=== PATIENT | male | born 1995 | race African-American/Black ===

== ENCOUNTER 2017-07-13 19:01 | Emergency (ER) | payer SELFPAY ==
[~2017-07-13] VITALS: Ht 182.9 cm; Wt 149.2 kg
[2017-07-13 20:03] VITALS: BP 168/97; PULSE 73; RESP 16; TEMP 98.8; O2SAT 100
--- NOTE | 2017-07-13 20:23 | PD ---
HPI Chief Complaint: ENT Complaint Time Seen by Provider: 20:08 Travel History International Travel<30 days: No Contact w/Intl Traveler<30days: No Traveled to known affect area: No History of Present Illness HPI 21-year-old -[place] male comes in with 2 issues. First of all patient states, he had some sun chips approximately 1 hour ago and felt like his throat was swelling. He came immediately here thinking he was having allergic reaction , which he has never had before. Patient states the sensation of swelling in his throat has improved since he has been here at the hospital. Patient denies any facial swelling, wheezing, cough, nausea, vomiting, or other constitutional symptoms. Second concern for the patient is possible kidney issue, as he states he had some flank pain starting approximately 2 weeks ago, for which he took [id number] cranberry pills and cranberry juice. He noted over the past couple of days that his back had more discomfort, and he discontinued the cranberry pills and juice with improvement in his symptoms. Lately however he is noticed foaming urine. He denies fever, chills, or dysuria or penile discharge. He has no testicular pain. He would like his urine checked to make sure everything is "okay". He has no known drug allergies. PFSH Past Medical History Medical History: Denies Significant Hx Diminished Hearing: No Tetanus Vaccination: < 5 Years Influenza Vaccination: No Social History Alcohol Use: No Tobacco Use: No Substance Use: No Allergies-Medications (Allergen,Severity, Reaction): Coded Allergies: No Known Allergies (Verified Adverse Reaction, Unknown, 07/13/17) Reported Meds & Prescriptions Reported Meds & Active Scripts Active Prednisone 20 Mg Tab 20 Mg PO BID 5 Days Review of Systems Except as stated in HPI: all other systems reviewed are Neg General / Constitutional: No: Fever, Chills Eyes: No: Visual changes HENT: Positive: Other, No: Headaches, Vertigo, Lightheadedness, Sore Throat, Rhinitis, Rhinorrhea, Congestion, Nosebleed, Neck Stiffness, Neck Pain, Masses, Gingival Bleeding (Swelling of throat. See history of present illness per), Dental Difficulties, Ear Discharge, Earache Cardiovascular: No: Chest Pain or Discomfort Respiratory: No: Shortness of Breath Gastrointestinal: No: Abdominal Pain Genitourinary: Positive: Flank Pain, Other (Foaming urine.), No: Urgency, Frequency, Dysuria, Nocturia, Hematuria, Decreased Urinary Output, Oliguria, Hesitancy, Dribbling, Incontinence, Pelvic Pain, Dyspareunia, Discharge Musculoskeletal: No: Pain Skin: No Rash Neurologic: No: Weakness Psychiatric: No: Depression Endocrine: No: Polydipsia Hematologic/Lymphatic: No: Easy Bruising Physical Exam Narrative GENERAL: Patient appears in no acute distress. He is speaking easily in full sentences. His voice sounds normal. SKIN: Warm and dry. Normal color. Normal turgor. No rash HEAD: Atraumatic. Normocephalic. EYES: Pupils equal and round. No scleral icterus. No injection or drainage. ENT: No nasal bleeding or discharge. Mucous membranes pink and moist. Posterior pharynx appears unremarkable. Uvula is midline. Tongue is midline. There is no significant swelling noted. Airways patent. NECK: Trachea midline. Supple and nontender CARDIOVASCULAR: Regular rate and rhythm. RESPIRATORY: No accessory muscle use. Clear to auscultation. Breath sounds equal bilaterally. GASTROINTESTINAL: Abdomen soft, non-tender, nondistended. Hepatic and splenic margins not palpable. No CVA tenderness. MUSCULOSKELETAL: Extremities without clubbing, cyanosis, or edema. No obvious deformities. NEUROLOGICAL: Awake and alert. No obvious cranial nerve deficits. Motor grossly within normal limits. Five out of 5 muscle strength in the arms and legs. Normal speech. PSYCHIATRIC: Appropriate mood and affect; insight and judgment normal. Data Data Last Documented VS Vital Signs Date Time Temp Pulse Resp B/P (MAP) Pulse Ox O2 Delivery O2 Flow Rate FiO2 07/13/17 20:03 98.8 73 16 168/97 (120) 100 Orders Orders Urinalysis - C+S If Indicated (07/13/17 20:18) Sodium Chloride 0.9% Flush (Ns Flush) (07/13/17 20:30) Prednisone (Deltasone) (07/13/17 20:30) Labs Laboratory Tests Test 07/13/17 20:23 Urine Color YELLOW Urine Turbidity CLEAR Urine pH 5.5 Urine Specific [place] 1.013 Urine Protein 30 mg/dL Urine Glucose (UA) NEG mg/dL Urine Ketones NEG mg/dL Urine Occult Blood NEG Urine Nitrite NEG Urine Bilirubin NEG Urine Urobilinogen LESS THAN 2.0 MG/DL Urine Leukocyte Esterase NEG Urine RBC 1 /hpf Urine WBC 5 /hpf Urine Squamous Epithelial Cells 1 /hpf Urine Bacteria RARE /hpf Urine Hyaline Casts 15 /lpf Urine Granular Casts 7 /lpf Urine Mucus MOD /lpf Microscopic Urinalysis Comment CULT NOT INDICATED MDM Medical Decision Making Medical Screen Exam Complete: Yes Emergency Medical Condition: Yes Differential Diagnosis Possible allergic reaction. Anxiety. Flank pain. Proteinuria. UTI. Narrative Course Patient appears medically stable at time of exam. Patient is given 20 mg prednisone p.o. Urinalysis is sent to the lab. Urine is unremarkable except for protein of 30. There is no sign of infection. Patient should follow-up with local primary care physician regarding this. Diagnosis Primary Impression: Allergic reaction to food Qualified Codes: T78.1XXA - Other adverse food reactions, not elsewhere classified, initial encounter Additional Impression: Proteinuria Qualified Codes: R80.9 - Proteinuria, unspecified Referrals: [facility] Patient Instructions: Allergies (ED), Anaphylaxis (ED), General Instructions Additional Instructions: Patient appears medically stable at time of exam. Patient is given 20 mg prednisone p.o. Urinalysis is sent to the lab. Urine is unremarkable except for protein of 30. There is no sign of infection. Patient should follow-up with local primary care physician regarding this. Med/Other Pt SpecificInfo: Prescription(s) given Scripts Prednisone (Prednisone) 20 Mg Tab 20 MG PO BID for 5 Days, #10 TAB 0 Refills Prov: Raf Fleming MD 07/13/17 Disposition: 01 DISCHARGE HOME Condition: Stable Heber Obrien Jul 13, 2017 20:23
[2017-07-13] MEDS ORDERED: SODIUM CHLORIDE 0.9% FLUSH 10 ML FLUSH IVF PRN (20:30)
[2017-07-13] MEDS ORDERED: predniSONE 20 MG TAB PO ONE (20:30)
[2017-07-13] MEDS ORDERED: PRED20 PO (20:42)
[2017-07-13 21:11] LABS: BACTERIA, URINE RARE /hpf; BILIRUBIN, URINE NEG (NEG); BLOOD, URINE NEG (NEG); GLUCOSE,URINE NEG (NEG); HYALINE CAST, URINE 15 /lpf (RARE); KETONE, URINE NEG (NEG); MUCUS URINE MOD /lpf (OCC); NITRITE,URINE NEG (NEG); PH, URINE 5.5 (5.0-8.5); SQUAMOUS EPITHELIAL CELL URINE 1 /hpf (0-5); URINE COLOR YELLOW (YELLW/STRAW); URINE LEUKOCYTE ESTERASE NEG (NEG)
== END 2017-07-13 21:32 | disposition home or self-care (01) ==
LOC: NEPK 19:01
DX: T78.1XXA Other adverse food reactions, not elsewhere classified, initial encounter (principal); R80.9 Proteinuria, unspecified; R22.1 Localized swelling, mass and lump, neck
CPT/HCPCS: 81001; 99283; J7512